=== PATIENT | male | born 1985 | race African-American/Black ===

== ENCOUNTER 2021-12-14 11:36 | Emergency (ER) | payer MEDICARE, MEDICAID ==
[~2021-12-14] VITALS: Ht 180.3 cm; Wt 81.8 kg
[2021-12-14] MEDS ORDERED: IBUPROFEN 600 MG TABLET PO ONE (13:30)
[2021-12-14 14:24] LABS: APPEARANCE,URINE CLEAR (CLEAR); BILIRUBIN,URINE NEGATIVE (NEGATIVE); GLUCOSE, URINE (UA) NEGATIVE (NEGATIVE); KETONES,URINE NEGATIVE (NEGATIVE); LEUKOCYTE ESTERASE ,URINE NEGATIVE (NEGATIVE); NITRATE,URINE NEGATIVE (NEGATIVE); OCCULT BLOOD,URINE NEGATIVE (NEGATIVE); PH,URINE 6.5 (5.0-8.0); PROTEIN,URINE TRACE mg/dL (NEGATIVE)
[2021-12-14] MEDS ORDERED: [UNRECOGNIZED DRUG - CODE] PO (16:26)
[2021-12-14 17:30] VITALS: BP 126/69
[2021-12-14] MEDS ORDERED: DOXYCYCLINE HYCLATE 100 MG TABLET PO ONE (17:30)
[2021-12-14] MEDS ORDERED: CefTRIAXone SODIUM 1 GM/VIAL IM ONE (17:30)
[2021-12-15 10:07] LABS: HIV 1-2 SCREEN 4TH GEN W/RFLX Non Reactive (Non Reactive)
== END 2021-12-14 17:51 | disposition home or self-care (01) ==
LOC: EMS 11:51
DX: N44.00 Torsion of testis, unspecified (principal)
CPT/HCPCS: 99284; 86592; 81003; 36415; 76870; 87491; 87591; 96372; 87389; J0696

== ENCOUNTER 2022-03-22 13:03 | Emergency (ER) | payer MEDICARE, MEDICAID ==
[~2022-03-22] VITALS: Ht 170.2 cm; Wt 79.5 kg
[~2022-03-22 13:03] MED LIST: [UNRECOGNIZED DRUG - CODE] PO
[2022-03-22 14:27] VITALS: BP 116/72
[2022-03-22 15:38] LABS: APPEARANCE,URINE CLEAR (CLEAR); BILIRUBIN,URINE NEGATIVE (NEGATIVE); GLUCOSE, URINE (UA) NEGATIVE (NEGATIVE); KETONES,URINE NEGATIVE (NEGATIVE); LEUKOCYTE ESTERASE ,URINE NEGATIVE (NEGATIVE); NITRATE,URINE NEGATIVE (NEGATIVE); OCCULT BLOOD,URINE NEGATIVE (NEGATIVE); PROTEIN,URINE NEGATIVE (NEGATIVE); SPECIFIC GRAVITIY, URINE 1.008 (1.003-1.030); UROBILINOGEN,URINE <=1.0 mg/dL (<=1.0)
== END 2022-03-22 16:44 | disposition home or self-care (01) ==
LOC: EMS 13:06
DX: K40.90 Unilateral inguinal hernia, without obstruction or gangrene, not specified as recurrent (principal)
CPT/HCPCS: 76870; 81003; 99284

== ENCOUNTER 2024-08-06 04:06 | Emergency (ER) | payer MEDICARE, OTHER ==
[~2024-08-06] VITALS: Ht 170.2 cm; Wt 72.7 kg
[2024-08-06 04:20] VITALS: TEMP 98.1
[2024-08-06] MEDS: KETOROLAC TROMETHAMINE 60 MG/2 ML VIAL IM ONE (08:16)
[2024-08-06] MEDS ORDERED: IBUP-1493 PO (08:22)
[2024-08-06 08:33] VITALS: BP 124/72; PULSE 85; RESP 16; O2SAT 97
== END 2024-08-06 08:44 | disposition home or self-care (01) ==
LOC: EMS 04:07
DX: M72.2 Plantar fascial fibromatosis (principal); Z59.00 Homelessness unspecified; Z79.899 Other long term (current) drug therapy
CPT/HCPCS: 99283; 96372; J1885

== ENCOUNTER 2024-10-24 01:54 | Emergency (ER) | payer MEDICARE, OTHER ==
[~2024-10-24] VITALS: Ht 170.2 cm; Wt 72.7 kg
[~2024-10-24 01:54] MED LIST changes: +IBUP-1493 PO; -[UNRECOGNIZED DRUG - CODE] PO
[2024-10-24 01:58] VITALS: BP 114/65; PULSE 69; RESP 16; TEMP 97.7; O2SAT 99
[2024-10-24] MEDS ORDERED: BACITRACIN ZINC/POLYMYXIN B 14.2 GM OINTMENT TP ONE (02:45)
[2024-10-24] MEDS: BACITRACIN 0.9 GM PACKET OINTMENT TP ONE (02:45)
== END 2024-10-24 02:49 | disposition home or self-care (01) ==
LOC: EMS 01:54
DX: S60.511A Abrasion of right hand, initial encounter (principal); S60.512A Abrasion of left hand, initial encounter; X58.XXXA Exposure to other specified factors, initial encounter; Y93.89 Activity, other specified; Y92.89 Other specified places as the place of occurrence of the external cause; Y99.8 Other external cause status
CPT/HCPCS: 99282; Z7502; Z7610

== ENCOUNTER 2025-01-31 13:38 | Emergency (ER) | payer MEDICARE, OTHER ==
[~2025-01-31] VITALS: Ht 170.2 cm; Wt 75.0 kg
[2025-01-31 14:16] VITALS: TEMP 98.3
[2025-01-31 14:35] VITALS: BP 128/81; PULSE 72; RESP 16; O2SAT 98
== END 2025-01-31 17:32 ==
LOC: EMS 13:38
DX: S06.0XAA Concussion with loss of consciousness status unknown, initial encounter (principal); Z65.3 Problems related to other legal circumstances; Y04.0XXA Assault by unarmed brawl or fight, initial encounter; Y93.89 Activity, other specified; Y92.89 Other specified places as the place of occurrence of the external cause; Y99.8 Other external cause status
CPT/HCPCS: 70450; 70486; 71045; 99284